=== PATIENT | female | born 1945 | race Caucasian/White ===

== ENCOUNTER → 2016-06-28 | Outpatient (CLI) | payer OTHER ==
--- NOTE | 2016-06-28 13:03 | DX ---
DEXA Bone Mineral Densitometry Clinical Indications: Osteoporosis screening in a postmenopausal female .The patient is on Synthroid therapy. Comparison: May 2014. Technique: Bone Mineral Densitometry (BMD) by Dual Energy X-Ray Absorptiometry (DEXA) was performed utilizing the Bluesocket scanner. The lumbar spine was evaluated in the AP projection. The bilat eral hips and left forearm were evaluated in the AP projection. Vertebral fracture assessment was als o performed. AP Lumbar Spine: The L1, L2, L3 and L4 vertebral bodies were evaluated. BMD: 1.111 gm/cm2 T-score: -0.7 SD Z-score: -0.1 SD Not significantly changed. AP Left Hip: Femoral neck. BMD: 0.924 gm/cm2 T-score: -0.8 SD Z-score: 0.2 SD Not significantly changed. AP Right Hip: Femoral neck. BMD: 0.867 gm/cm2 T-score: -1.2 SD Z-score: -0.2 SD There has been a significant decrease in bone density of 6.7%. AP Left Forearm, 05/25: BMD: 0.817 gm/cm2 T-score: -0.7 SD Z-score: 1.3 SD There has been a significant decrease in bone density of 12.2%. Vertebral Fracture Assessment: No significant fracture deformity. Conclusion: Considering the lowest measured site, the patient's bone density is low; osteopenic ( -2. 5 < T-score < -1 ). The ten year risk for any major osteoporotic fracture is 13.9 % and for a hip fracture is 1.7 %. Any bone loss in this patient is probably related to aging or estrogen deficiency. Recommendations: To prevent osteoporosis and to promote bone density, consider the following recommen dations: 1. Pursue a regular regimen of weightbearing and muscle strengthening exercises. 2. Optimize daily calcium intake. 3. Check serum hydroxy vitamin D3 (normal >30ng/ml). 4. Ensure daily intake of vitamin D is 800 international units. 5. Consider follow-up DEXA scan in two years to assess the rate of bone loss in this patient. 6. Consider excluding common secondary causes of bone loss.
--- NOTE | 2016-06-28 13:51 | DX ---
PA and Lateral Chest - June 28, 2016 Clinical Indications: Follow up basilar infiltrates with comparison to the previous examination of O ct2015. Findings: No focal pulmonary consolidation is identified. The basilar infiltrates have resolved. Jasmyn bronchial thickening persists. There is hyperexpansion seen with flattening of the hemidiaphragms not ed. The heart is borderline enlarged. Pulmonary vascularity is mildly prominent. Pleural surfaces and bony thorax are negative for acute abnormality. Impression: 1. Findings consistent with COPD/chronic bronchitis. 2. Previously seen infiltrates have resolved. 3. Query low-grade congestive heart failure without pulmonary edema.
--- NOTE | 2016-06-29 12:19 | MA ---
Screening Digital Mammogram With iCAD Analysis Clinical Indications: Routine screening. Technique: Standard cephalocaudal and mediolateral oblique projections were obtained. This examinatio n was processed by the iCAD computer aided detection system. Comparison: May 2014, October 2012, September 2011, February 2011, August 2010, July 2010, December 2008, Apr. Breast density: Type B; Scattered fibroglandular densities. Findings: CAD was reviewed. No masses, suspicious calcifications or other signs of malignancy are id entified. There has been no significant change in the appearance of either breast. Impression: Negative mammogram. BI-RADS 1. Recommendation: Routine mammographic screening in one year as long as physical examination is [facility]. Negative mammography should not preclude additional workup of a clinically suspicious finding. The patient's information is entered into a reminder system with a target due date for her next mammo gram.
== END ==
LOC: BRMIMAGING 10:46
PROVIDERS: ATTEND Internal Medicine
DX: Z12.31 Encounter for screening mammogram for malignant neoplasm of breast (principal); J44.9 Chronic obstructive pulmonary disease, unspecified; M81.0 Age-related osteoporosis without current pathological fracture; D64.9 Anemia, unspecified; E03.9 Hypothyroidism, unspecified; E78.2 Mixed hyperlipidemia; I10 Essential (primary) hypertension; M10.00 Idiopathic gout, unspecified site; Z51.81 Encounter for therapeutic drug level monitoring
CPT/HCPCS: 71020-PO; G0202

== ENCOUNTER → 2016-08-05 | Outpatient (CLI) | payer OTHER | LOC: BHFA 15:30 | PROVIDERS: ATTEND Internal Medicine Cardiovascular Disease | DX: I10 Essential (primary) hypertension (principal); I25.10 Atherosclerotic heart disease of native coronary artery without angina pectoris ==

== ENCOUNTER → 2016-09-09 | Outpatient (CLI) | payer OTHER | LOC: BHFA 09:15 | PROVIDERS: ATTEND Internal Medicine Cardiovascular Disease | DX: I50.9 Heart failure, unspecified (principal) ==

== ENCOUNTER 2016-10-01 08:28 | Day surgery (SDC) | payer OTHER ==
[2016-10-01] MEDS ORDERED: NS 1,000 ML IV ONE (08:32)
[2016-10-01] MEDS ORDERED: DIAZEPAM 5 MG TAB PO ONE (08:32)
[2016-10-01] MEDS ORDERED: FAMOTIDINE 20 MG TAB PO ONE (08:32)
[2016-10-01] MEDS ORDERED: diphenhydrAMINE 25 MG CAP PO ONE ×2 (08:32→08:59)
[2016-10-01] MEDS ORDERED: ASPIRIN EC 325 MG TAB PO ONE ×2 (08:32→08:59)
--- NOTE | 2016-10-01 08:57 | CPEKG ---
Heart Rate: 69 RR Interval: 870 P-R Interval: 172 QRSD Interval: 98 QT Interval: 432 QTC Interval: 463 P [place]: 52 QRS [place]: 10 T Wave [place]: 102 EKG Severity - BORDERLINE ECG - EKG Impression: SINUS RHYTHM EKG Impression: BORDERLINE INFERIOR Q WAVES SUGGESTIVE OF PRIOR INFERIOR [place] EKG Impression: BORDERLINE T ABNORMALITIES, ANT-LAT LEADS Electronically Signed By: Darrell Gallardo 01-Oct-2016 16:19:27
[2016-10-01] MEDS ORDERED: DIAZEPAM 5 MG TAB ONE (08:59)
[2016-10-01] MEDS ORDERED: FAMOTIDINE 20 MG TAB ONE (08:59)
[2016-10-01] MEDS ORDERED: fentaNYL 100 MCG/2 ML INJ ONE (09:09)
[2016-10-01] MEDS ORDERED: MIDAZOLAM 2 MG/2 ML VIAL ONE ×2 (09:09→09:10)
[2016-10-01] MEDS ORDERED: LIDOCAINE 1% 30 ML SDV ONE (09:09)
[2016-10-01] MEDS ORDERED: HEPARIN 10,000 UNIT/10 ML MDV ONE (09:10)
[2016-10-01] MEDS ORDERED: IOPAMIDOL (ISOVUE-370) 150 ML BTL IV ONE (09:10)
[2016-10-01] MEDS ORDERED: VERAPAMIL 5 MG/2 ML VIAL ONE (09:10)
[2016-10-01 09:12] LABS: % IMMATURE GRANULYOCYTES 0.4 % (0.0-1.1); ABSOLUTE IMMATURE GRANULOCYTES 0.02 10^3/uL (0.00-0.10); ADD DIFF? NO; ADD MORPH? NO; ADD SCAN? NO; ATYPICAL LYMPHOCYTE FLAG 0 (0-99); FRAGMENT RBC FLAG 10 (0-99); HEMATOCRIT 33.2 % (38.0-47.0); LEFT SHIFT FLG 0 (0-99); LIPEMIA HEMOLYSIS FLAG 80 (0-99); MEAN CELL HEMOGLOBIN 30.2 pg (27.9-34.1); MEAN CELL HEMOGLOBIN CONCENTR. 33.1 g/dL (32.4-36.7); MEAN CELL VOLUME 91.2 fL (81.5-99.8); MEAN PLATELET VOLUME 10.1 fL (8.7-11.7); PLATELET CLUMPS FLAG 10 (0-99); PLATELET COUNT 237 10^3/uL (150-400); RED BLOOD CELL COUNT 3.64 10^6/uL (4.18-5.33); RED CELL DISTRIBUTION WIDTH 13.9 % (11.5-15.2)
[2016-10-01 09:20] LABS: INR 0.97 (0.83-1.16); PROTIME(PATIENT) 12.8 SEC (12.0-15.0)
[2016-10-01 09:46] LABS: ANION GAP 13 mEq/L (8-16); CALCIUM 9.4 mg/dL (8.5-10.4); CARBON DIOXIDE 26 mEq/l (22-31); CHLORIDE 101 mEq/L (97-110); CHOLESTEROL 164 mg/dL (140-220); CHOLESTEROL/HDL RATIO 3.42 RATIO (1.00-4.44); GLOMERULAR FILTRATION RATE 55; GLUCOSE 167 mg/dL (70-100); HIGH DENSITY LIPOPROTEIN 48 mg/dL (40-85); LDL/HDL RATIO 1.33 RATIO (1.00-3.22); LOW DENSITY LIPOPROTEIN 64 mg/dL (80-100); MAGNESIUM 1.8 mg/dL (1.6-2.3); NON-HIGH DENSITY LIPOPROTEIN 116 mg/dL (90-129); SODIUM 140 mEq/L (134-144); TRIGLYCERIDE 262 mg/dL (35-135); VERY LOW DENSITY LIPOPROTEINS 52 mg/dL (8-25)
[2016-10-01] MEDS ORDERED: IOPAMIDOL (ISOVUE-300) 150 ML BTL ONE (10:22)
--- NOTE | 2016-10-01 11:09 | PDDXCAT ---
Diagnostic Cath Note - . Date: 10/01/16 Intervention: none *Procedure 1. selective coronary angiography 2. left heart catheterization 3. left ventriculogram 4. right heart catheterization Indication: CHF, NYHA III symptoms, CCS II angina pectoris. Access: Right radial artery, right femoral vein. *Materials Left Heart Cath size: 5F Left Heart Cath materials: JR4.0, Wong Right, JL3.5, pigtail Right Heart Cath size: 5F Right Heart Cath materials: PWP *Findings-Selective Coronary Angiography LM: The left main is 6 mm in size and trifurcates into an LAD, circumflex and ramus system. There is no LM disease. LAD: The proximal LAD is 3.25 mm in size. There is no flow-limiting disease with HENRY III flow throughout. RAMUS: There is no flow-limiting disease with HENRY III flow throughout. LCX: The proximal is 3.25 mm in size and co-dominant. Previous stenting in the left circumflex is widely patent with HENRY III flow. RCA: The right coronary artery is co-dominant and ~2.5 mm in size and gives rise to a small PDA. There is no evidence of flow-limiting disease with HENRY III flow throughout. *Findings-Left Heart Catheterization LVEDP: 28 mmHg AO: 128/58/69 mmHg LVEF: 65% LVG: There is a basal inferior wall hypokinesis consistent with prior inferior infarction. The visualized portion of the thoracic aorta is within normal limits of size without evidence aneurysm or rasta dissection. *Findings-Right Heart Catheterization RA: 17/14/14 mmHg RV: 45/13/19 mmHg PA: 44/23/32 mmHg PWP: 24/25/21 mmHg CO: 7.86 L/min CI: 3.85 L/min/m^2 PA SAT: 68.3% AO SAT: 90% IVC SAT: 68.9% *Summary Complications: None Estimated blood loss: <50ml Closure method: TR Band Assessment/Conclusion: 1. [place] vessel coronary artery disease without evidence of flow-limiting obstruction. Previous stenting in the left circumflex was widely patent without in-stent restenosis. Intervention was not needed/warranted at the present time. 2. There was mild basal inferior wall hypokinesis on left ventriculogram with normal ejection fraction estimated to be 65%. 3. Elevated pulmonary capillary wedge pressure, moderate pulmonary hypertension and elevated LVEDP at 28 mmHg. More aggressive diuresis is recommended. 4. The patient has right heart failure and dysfunction that is contributing to her lower extremity edema. This is likely related to her undiagnosed and untreated sleep apnea. The patient has a scheduled follow up with Dr. Cedeño. I would like for her to make an appointment for her to see Margarita Palmer so that a formal sleep evaluation can be initiated. She may also benefit from evaluation in our lymphedema clinic to help reduce the risk of recurrent cellulitis and impaired venous return. Patient Problems: Problems Problem Status Onset Ventral hernia Acute
[2016-10-01 17:01] VITALS: BP 116/54; RESP 19; O2SAT 95
== END 2016-10-01 17:02 | disposition home or self-care (01) ==
LOC: FCATH 08:28
PROVIDERS: ATTEND Internal Medicine Cardiovascular Disease
PROC: B2151ZZ Fluoroscopy of Left Heart using Low Osmolar Contrast (ICD-10-PCS; principal; 2016-10-01)
PROC: 4A023N8 Measurement of Cardiac Sampling and Pressure, Bilateral, Percutaneous Approach (ICD-10-PCS; principal; 2016-10-01)
PROC: B2111ZZ Fluoroscopy of Multiple Coronary Arteries using Low Osmolar Contrast (ICD-10-PCS; principal; 2016-10-01)
DX: I50.30 Unspecified diastolic (congestive) heart failure (principal); I25.10 Atherosclerotic heart disease of native coronary artery without angina pectoris; I10 Essential (primary) hypertension; I25.2 Old myocardial infarction; J44.9 Chronic obstructive pulmonary disease, unspecified; Z87.891 Personal history of nicotine dependence; E78.5 Hyperlipidemia, unspecified; Z95.5 Presence of coronary angioplasty implant and graft
CPT/HCPCS: J1644; J2250; J3010; Q9967

== ENCOUNTER → 2016-10-27 | Outpatient (CLI) | payer OTHER | LOC: FIMAGING 07:31 | PROVIDERS: ATTEND Internal Medicine | DX: D25.1 Intramural leiomyoma of uterus (principal); R16.0 Hepatomegaly, not elsewhere classified; K76.0 Fatty (change of) liver, not elsewhere classified; K76.89 Other specified diseases of liver; R16.1 Splenomegaly, not elsewhere classified; Z90.49 Acquired absence of other specified parts of digestive tract ==

== ENCOUNTER 2017-06-09 16:29 | Emergency (ER) | payer OTHER ==
[2017-06-09 16:36] VITALS: RESP 18
--- NOTE | 2017-06-09 17:03 | CPEKG ---
Heart Rate: 66 RR Interval: 909 P-R Interval: 160 QRSD Interval: 96 QT Interval: 404 QTC Interval: 424 P [place]: 63 QRS [place]: 12 T Wave [place]: 8 EKG Severity - BORDERLINE ECG - EKG Impression: SINUS RHYTHM EKG Impression: BORDERLINE T ABNORMALITIES, ANTERIOR LEADS Electronically Signed By: Jesus Pal 09-Jun-2017 20:04:55
[2017-06-09 17:15] LABS: PLATELET COUNT 205 10^3/uL (150-400)
--- NOTE | 2017-06-09 17:18 | EDPHY ---
H & P Time Seen by Provider: 06/09/17 16:48 HPI/ROS: Chief complaint. Weakness HPI. 72-year-old female presents emergency department with complaint of weakness to chest arm shoulders neck for 1 day. She is walking okay. Maybe slight tightness to her chest. She did take aspirin prior to arrival. She has been sneezing but no cough or fever. No shortness of breath. She says I feel tired out. She is on chronic oxygen. Vision is okay. No headache. She felt she had blood pressure changes between both arms. She was seen at [facility] and referred to the emergency department ROS Constitutional. Generalized weakness especially to upper trunk Eyes. no problems with vision ENT. no sore throat, no nasal drainage Cardiovascular. Maybe chest tightness Respiratory. no shortness of breath, no cough Abdominal. no abdominal pain, no nausea/vomiting, no diarrhea . no problems urinating MS. no calf pain/swelling, no neck/back pain, no joint pain Skin. no rash Lymph. no swollen glands Neuro. no headache, no dizziness, no difficulty walking or with speech Past Medical/Surgical History: Past medical history significant for CT, stents, diabetes, COPD, hypertension, chronic oxygen, cholecystectomy, chronic kidney disease Social History: , nonsmoker, no alcohol Smoking Status: Former smoker Physical Exam: General Appearance: Alert well-developed female mild distress vital signs are stable Eyes: Pupils equal and round no pallor or injection. ENT, Mouth: Mucous membranes are moist. Respiratory: There are no retractions, lungs are clear to auscultation. Cardiovascular: Regular rate and rhythm. Gastrointestinal: Abdomen is soft and nontender, no masses, bowel sounds normal. Neurological: Awake and alert, sensory and motor exams grossly normal. Skin: Warm and dry, no rashes. Musculoskeletal: Neck is supple nontender. Extremities symmetrical, full range of motion. Psychiatric: Patient is oriented X 3, there is no agitation. Constitutional: Initial Vital Signs Temperature (C) 37.1 C 06/09/17 16:32 Heart Rate 82 06/09/17 16:32 Respiratory Rate 18 06/09/17 16:32 Blood Pressure 133/60 H 06/09/17 16:32 O2 Sat (%) 92 06/09/17 16:32 O2 Delivery Mode Room Air O2 (L/minute) 3 Allergies/Adverse Reactions: Sulfa (Sulfonamide Antibiotics) Allergy (Unknown, Verified 06/09/17 16:36) Home Medications: Medication Instructions Recorded Allopurinol [Allopurinol 100 MG 100 mg PO DAILY 02/23/15 (*)] Aspirin [Aspirin 81mg (*)] 81 mg PO DAILY@12 02/23/15 Atorvastatin Calcium [Lipitor 20 20 mg PO DAILY@12 02/23/15 mg (*)] C/E/Zn/Cu/OM3/DHA/EPA/LUT/ZEAX 1 cap PO DAILY@12 02/23/15 [Preservision Areds 2 Softgel] COAL TAR [IONIL T] 1 ml TP DAILY PRN 02/23/15 Cholecalciferol Vit D3 [Vitamin D3 1,000 unit PO BID 02/23/15 (*)] Cyanocobalamin [Vitamin B12 (*)] 1,000 mcg PO DAILY 02/23/15 Econazole 1% [Spectazole 1%] 1 applic TP DAILY PRN 02/23/15 Fluticasone Nasal [Flonase Nasal 1 spray IH HS 02/23/15 [place]] Fluticasone/Salmeter 250/50Mcg 1 inh IH DAILY 02/23/15 [Advair 250/50 (*)] Ketoconazole 2% [Nizoral Shampoo 1 applic TP DAILY PRN 02/23/15 (*)] Ketorolac 0.5% [Acular 0.5% Opht 1 drop EACHEYE DAILY PRN 02/23/15 Drops (*)] Levothyroxine [Synthroid 137 mcg 137 mcg PO DAILY 02/23/15 (*)] Montelukast Sodium [Singulair 10 10 mg PO HS 02/23/15 mg (*)] traZODone [traZODONE 50MG (*)] 50 - 100 mg PO HS 02/23/15 Acetaminophen [Tylenol ES 500 mg 500 mg PO Q6H PRN 10/01/16 (*)] Acetamn/Diphenhydramine 500/25 1 each PO HS PRN 10/01/16 [Tylenol PM (*)] Albuterol [Proventil Inhaler HFA 1 - 2 puffs IH Q4H PRN 10/01/16 (*)] Calcium Carbonate [Tums 500MG (*)] 500 - 1,000 mg PO TIDMEAL PRN 10/01/16 Ferrous Gluconate 324 mg PO BID 10/01/16 Irbesartan [Avapro] 300 mg PO DAILY 10/01/16 Metoprolol Tartrate [Lopressor 25 25 mg PO BID 10/01/16 mg (*)] Pantoprazole Sodium [Protonix 40mg 40 mg PO BID 10/01/16 (*)] Potassium Cl [Klor-Con 20 meq (*)] 10 meq PO BID 10/01/16 Torsemide [Demadex] 20 mg PO BID@,10/01/16 Atorvastatin Calcium [Lipitor 20 20 mg PO DAILY 06/09/17 mg (*)] Irbesartan [Avapro 300 mg] 300 mg PO 06/09/17 Medical Decision Making - Diagnostics EKG Interpretation: EKG interpreted by me shows normal sinus rhythm with normal interval and axis. QRS is normal. There is diffuse and anterior T-wave flattening. No ST elevation or depression. No arrhythmia. The rate is 66 Repeat EKG shows normal sinus rhythm multiple PVCs no ST elevation or depression.. Rate 71 Imaging Results: Imaging Impressions Chest X-Ray 06/09/17 17:32 Impression: 1. Mild peribronchial thickening, which could related to bronchitis or less likely mild fluid overload. 2. Stable cardiomegaly. Chest x-ray interpreted by me as mild peribronchial thickening but no evidence for pneumonia Procedures: IV normal saline with 1 L given. Monitor ED Course/Re-evaluation: Re-evaluation 8:05 p.m.. Patient is stable. She does tell me that she feels like her heart is pounding. I see frequent PVCs on the monitor. Repeat EKG is ordered Re-evaluation again at 8:45 p.m.. Patient is stable. She and I discussed imaging lab an EKG findings. We discussed treatment plan including criteria for return importance of follow-up further evaluation. She expresses understanding and agreement Differential Diagnosis: This may be viral syndrome. I have considered acute coronary syndrome electrolyte abnormalities, pneumonia - Data Points Laboratory Results: Laboratory Results 06/09/17 17:00 06/09/17 17:00 06/09/17 06/09/17 17:00 17:00 WBC 5.85 10^3/uL 10^3/uL (3.80-9.50) RBC 3.94 10^6/uL L 10^6/uL (4.18-5.33) Hgb 11.9 g/dL L g/dL (12.6-16.3) Hct 34.8 % L % (38.0-47.0) MCV 88.3 fL fL (81.5-99.8) MCH 30.2 pg pg (27.9-34.1) MCHC 34.2 g/dL g/dL (32.4-36.7) RDW 12.9 % % (11.5-15.2) Plt Count 205 10^3/uL 10^3/uL (150-400) MPV 10.0 fL fL (8.7-11.7) Neut % (Auto) 59.1 % % (39.3-74.2) Lymph % (Auto) 26.0 % % (15.0-45.0) [place] % (Auto) 8.9 % % (4.5-13.0) Eos % (Auto) 5.1 % % (0.6-7.6) Baso % (Auto) 0.7 % % (0.3-1.7) Nucleat RBC Rel Count 0.0 % % (0.0-0.2) Absolute Neuts (auto) 3.46 10^3/uL 10^3/uL (1.70-6.50) Absolute Lymphs (auto) 1.52 10^3/uL 10^3/uL (1.00-3.00) Absolute Monos (auto) 0.52 10^3/uL 10^3/uL (0.30-0.80) Absolute Eos (auto) 0.30 10^3/uL 10^3/uL (0.03-0.40) Absolute Basos (auto) 0.04 10^3/uL 10^3/uL (0.02-0.10) Absolute Nucleated RBC 0.00 10^3/uL 10^3/uL (0-0.01) Immature Gran % 0.2 % % (0.0-1.1) Immature Gran # 0.01 10^3/uL 10^3/uL (0.00-0.10) Sodium 140 mEq/L mEq/L (135-145) Potassium 4.0 mEq/L mEq/L (3.5-5.2) Chloride 102 mEq/L mEq/L (97-110) Carbon Dioxide 25 mEq/l mEq/l (22-31) Anion Gap 13 mEq/L mEq/L (8-16) BUN 26 mg/dL H mg/dL (7-23) Creatinine 1.2 mg/dL H mg/dL (0.6-1.0) Estimated GFR 44 Glucose 122 mg/dL H mg/dL (70-100) Calcium 9.6 mg/dL mg/dL (8.5-10.4) Troponin I < 0.012 ng/mL ng/mL (0.000-0.034) Medications Given: Discontinued Medications Sodium Chloride (Ns) 1,000 mls @ 0 mls/hr IV EDNOW ONE; Wide Open PRN Reason: Protocol Stop: 06/09/17 17:33 Last Admin: 06/09/17 17:38 Dose: 1,000 mls Departure - Departure Disposition: Home, Routine, Self-Care Clinical Impression: Heart palpitations Condition: Good Instructions: Heart Palpitations (ED) Additional Instructions: Return for worsening symptoms. Follow up with Dr. Kumar for worsening and continuing symptoms Referrals: IRENE KUMAR [Other] - 2-3 days, call for appt.
[2017-06-09] MEDS ORDERED: NS 1,000 ML IV ONE (17:32)
--- NOTE | 2017-06-09 20:33 | CPEKG ---
Heart Rate: 71 RR Interval: 845 P-R Interval: 168 QRSD Interval: 84 QT Interval: 400 QTC Interval: 435 P [place]: 73 QRS [place]: 18 T Wave [place]: -22 EKG Severity - ABNORMAL ECG - EKG Impression: SINUS RHYTHM EKG Impression: MULTIPLE VENTRICULAR PREMATURE COMPLEXES EKG Impression: BORDERLINE INFERIOR Q WAVES EKG Impression: BORDERLINE T ABNORMALITIES, DIFFUSE LEADS Electronically Signed By: Jesus Pla 09-Jun-2017 23:29:27
[2017-06-09 21:43] VITALS: BP 142/69; PULSE 84; TEMP 98.8; O2SAT 93
== END 2017-06-09 21:46 | disposition home or self-care (01) ==
DX: R00.2 Palpitations (principal); I25.2 Old myocardial infarction; E11.9 Type 2 diabetes mellitus without complications; J44.9 Chronic obstructive pulmonary disease, unspecified; I12.9 Hypertensive chronic kidney disease with stage 1 through stage 4 chronic kidney disease, or unspecified chronic kidney disease; N18.9 Chronic kidney disease, unspecified; E86.9 Volume depletion, unspecified; Z87.891 Personal history of nicotine dependence; Z79.82 Long term (current) use of aspirin

== ENCOUNTER → 2018-04-26 | Outpatient (CLI) | payer OTHER | LOC: FIMAGING 16:41 | PROVIDERS: ATTEND Physician Assistant | DX: M79.672 Pain in left foot (principal) ==

== ENCOUNTER → 2018-07-03 | Outpatient (CLI) | payer OTHER | LOC: BRMIMAGING 13:36 | PROVIDERS: ATTEND Internal Medicine | DX: Z12.31 Encounter for screening mammogram for malignant neoplasm of breast (principal); M85.89 Other specified disorders of bone density and structure, multiple sites; Z78.0 Asymptomatic menopausal state ==

== ENCOUNTER → 2018-08-30 | Outpatient (CLI) | payer OTHER | LOC: GIMAGING 14:13 | PROVIDERS: ATTEND Registered Nurse | DX: R05 Cough (principal); R06.02 Shortness of breath; R42 Dizziness and giddiness; R91.8 Other nonspecific abnormal finding of lung field | CPT/HCPCS: 71046-PO ==

== ENCOUNTER → 2018-09-23 | Outpatient (CLI) | payer OTHER | LOC: GIMAGING 19:36 | PROVIDERS: ATTEND Registered Nurse | DX: J98.4 Other disorders of lung (principal); R05 Cough | CPT/HCPCS: 71046-PO ==

== ENCOUNTER → 2018-09-26 | Outpatient (CLI) | payer OTHER | LOC: BHFA 10:00 | PROVIDERS: ATTEND Internal Medicine Cardiovascular Disease | DX: I50.9 Heart failure, unspecified (principal) ==

== ENCOUNTER → 2018-10-18 | Outpatient (CLI) | payer OTHER | LOC: FIMAGING 15:29 ==